=== PATIENT | female | born 1985 | race Caucasian/White ===

== ENCOUNTER 2023-03-05 23:40 | Emergency (ER) | payer OTHER ==
[~2023-03-05] VITALS: Ht 170.2 cm; Wt 63.5 kg
[2023-03-06 01:05] LABS: BASOPHILS % (AUTO) 0.6 % (0.0-2.0); EOSINOPHILS # (AUTO) 0.1 K/uL (0.0-0.7); EOSINOPHILS % (AUTO) 0.8 % (0.0-7.0); HEMATOCRIT 42.3 % (31.2-41.9); HEMOGLOBIN 14.5 g/dL (10.9-14.3); LYMPHOCYTES # (AUTO) 1.9 K/uL (0.8-4.8); LYMPHOCYTES % (AUTO) 29.1 % (20.5-51.5); MEAN CORPUSCULAR HEMOGLOBIN 32.3 uug (24.7-32.8); MEAN CORPUSCULAR HGB CONC 34 g/dL (32.3-35.6); MEAN CORPUSCULAR VOLUME 93.9 fL (75.5-95.3); MONOCYTES # (AUTO) 0.4 K/uL (0.1-1.30); MONOCYTES % (AUTO) 5.9 % (0.0-11.0); NEUTROPHILS # (AUTO) 4.1 K/uL (1.8-8.9); NEUTROPHILS % (AUTO) 63.6 % (38.5-71.5); PLATELET COUNT (AUTO) 214 K/uL (179-408); WHITE BLOOD COUNT (AUTO) 6.5 K/uL (3.8-11.8)
[2023-03-06 01:26] LABS: DIFFERENTIAL COMMENT 1
[2023-03-06 01:39] LABS: TOTAL PROTEIN, SERUM 7.9 g/dL (6.4-8.2)
[2023-03-06 02:02] LABS: CALCIUM 8.3 mg/dL (8.5-10.1); CREATININE 0.8 mg/dL (0.6-1.3)
[2023-03-06 02:09] LABS: BILIRUBIN,TOTAL 0.1 mg/dL (0.2-1.0)
[2023-03-06 03:39] VITALS: BP 142/86; TEMP 98.5; O2SAT 99
== END 2023-03-06 03:40 | disposition home or self-care (01) ==
LOC: ER 23:43
DX: S13.8XXA Sprain of joints and ligaments of other parts of neck, initial encounter (principal); S23.3XXA Sprain of ligaments of thoracic spine, initial encounter; S20.219A Contusion of unspecified front wall of thorax, initial encounter; R03.0 Elevated blood-pressure reading, without diagnosis of hypertension; F10.129 Alcohol abuse with intoxication, unspecified; M54.9 Dorsalgia, unspecified; M54.2 Cervicalgia; R41.82 Altered mental status, unspecified; R07.89 Other chest pain; V09.9XXA Pedestrian injured in unspecified transport accident, initial encounter; Y93.89 Activity, other specified; Y92.89 Other specified places as the place of occurrence of the external cause; Y99.8 Other external cause status
CPT/HCPCS: 36415; 70450; 71250; 72125; 85025; 85610; A4606; A4663; G0480